=== PATIENT | female | born 2000 | race Caucasian/White ===

== ENCOUNTER 2025-03-06 18:05 | Emergency (ER) | payer SELFPAY ==
[2025-03-06 18:06] VITALS: BP 127/85; PULSE 76; RESP 16; TEMP 36.6; O2SAT 99; BMI 22.7
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
--- NOTE | 2025-03-06 18:45 | CM.ED ---
Social Work Reason for visit: No PCP Patient verified that she does not currently have a PCP as she just moved to the area from [place]. Chacha Min and [facility] provider list given, patient appreciative of same. No further needs identified at this time. Jaqueline Arthur, [employer]ER, ERISA ATTORNEY
== END 2025-03-06 18:50 | disposition home or self-care (01) ==
LOC: ED 18:45
PROVIDERS: Emergency Provider Emergency Medicine; Visit Provider Emergency Medicine
DX: R07.89 Other chest pain (principal)
CPT/HCPCS: 99282